=== PATIENT | female | born 1980 | race Caucasian/White ===

== ENCOUNTER → 2019-03-26 16:40 | Outpatient (CLI) | payer OTHER, SELFPAY ==
--- NOTE | ~2019-03-26 | XR_ITS ---
EXAMINATION: XR sinus min 3V DATE: 03/26/2019 17:09 INDICATION: Chronic sinusitis TECHNIQUE: AP, Sanabria and lateral views of the paranasal sinuses were obtained. COMPARISON: None. FINDINGS: No fractures identified. Specifically the visualized shannon of the orbits and paranasal sinuses appea r intact. Nasal septum is midline. The paranasal sinuses and mastoid air cells appear well-aerated wi th no evident air-fluid levels.. IMPRESSION: 1. Unremarkable radiographs of the paranasal sinuses. Reviewed, dictated and finalized at location A. PULLER
== END ==
PROVIDERS: PCP Family Medicine; Visit Provider Family Medicine
DX: J32.9 Chronic sinusitis, unspecified (principal)
CPT/HCPCS: 70220

== ENCOUNTER 2019-10-19 14:58 | Outpatient (CLI) | payer OTHER, SELFPAY ==
--- NOTE | ~2019-10-19 | MR_ITS ---
EXAMINATION: MR cervical spine wo con DATE: 10/19/2019 15:57 INDICATION: Neck pain and numbness. TECHNIQUE: Magnetic resonance imaging (MRI) of the cervical spine was performed without intravenous c ontrast. Sequences included sagittal T2-weighted FSE, sagittal STIR FSE, sagittal T1-weighted FSE, ax ial MERGE, and axial T2-weighted FSE. COMPARISON: None FINDINGS: There is kyphosis of cervical spine. Vertebral body heights are normal. There is mildly dec reased disc height at C4-C5 and moderately decreased disc height at C5-C6. The spinal cord signal int ensity is normal. There are nodules in the thyroid measuring up to 4 mm, likely not clinically signif icant. The following disc levels are specifically discussed: C2-C3: The disc does not extend beyond the endplate margin. There is no uncovertebral joint osteoarth ritis. There is no facet joint osteoarthritis. There is no neural foraminal stenosis. There is no violetta tral canal stenosis. C3-C4: There is a central extrusion. There is no uncovertebral joint osteoarthritis. There is no face t joint osteoarthritis. There is no neural foraminal stenosis. There is mild central canal stenosis w ith ventral indentation of the spinal cord. C4-C5: The disc is bulging. There is mild left uncovertebral joint osteoarthritis. There is mild left facet joint osteoarthritis. There is no neural foraminal stenosis. There is mild central canal steno sis with ventral indentation of the spinal cord. C5-C6: The disc is bulging. There is severe bilateral uncovertebral joint osteoarthritis. There is mi ld right facet joint osteoarthritis. There is moderate bilateral neural foraminal stenosis. There is mild central canal stenosis with ventral indentation of the spinal cord. C6-C7: There is a central protrusion. There is mild left uncovertebral joint osteoarthritis. There is mild left facet joint osteoarthritis. There is no neural foraminal stenosis. There is mild central c anal stenosis. C7-T1: The disc does not extend beyond the endplate margin. There is no uncovertebral joint osteoarth ritis. There is mild right and moderate left facet joint osteoarthritis. There is mild left neural fo raminal stenosis. There is no central canal stenosis. IMPRESSION: 1. Moderate cervical spondylosis. Reviewed, dictated and finalized at location B.
--- NOTE | ~2019-10-19 | MR_ITS ---
EXAMINATION: MR brain/brain stem wo/w con DATE: 10/19/2019 16:00 INDICATION: Headache. TECHNIQUE: Magnetic resonance imaging (MRI) of the brain and brainstem was performed without and with 12 mL MultiHance intravenous contrast. Sequences included sagittal and axial T1-weighted FSE, axial diffusion-weighted FS EPI, axial T2*-weighted GRE, axial T2-weighted FLAIR Propeller, and axial T2-we ighted Propeller. Postcontrast sequences included axial and coronal T1-weighted FSE. Apparent diffusi on coefficient (ADC) maps were created. COMPARISON: None. FINDINGS: There is no intracranial hemorrhage, acute infarction, or abnormal intracranial mass lesion . The ventricles are normal in size. The orbits are normal. The paranasal sinuses are clear. The mast oid air cells are normal. IMPRESSION: 1. Normal brain. Reviewed, dictated and finalized at location B. IMPRESSION: 1. Normal brain.
[2019-10-19 15:23] LABS: Estimated Glomerular Filt Rate > 60
== END 2019-10-19 14:59 ==
PROVIDERS: Visit Provider Family Medicine
DX: R51 Headache (principal); R20.2 Paresthesia of skin; M47.892 Other spondylosis, cervical region
CPT/HCPCS: 36415; 70553; 72141; A9577

== ENCOUNTER → 2019-12-11 14:15 | Outpatient (CLI) | payer OTHER, SELFPAY ==
--- NOTE | ~2019-12-11 | XR_ITS ---
XR pelvis 1-2V DATE: 12/11/2019 14:51 INDICATION: Take radiograph with patient standing and shoes off TECHNIQUE: Standing AP view COMPARISON: None FINDINGS: There is pelvic tilt, the left femoral head is approximately 8.5 mm higher than the right f emoral head. No pelvic fracture or bone destruction. The pubic symphysis and sacral iliac joints are intact. Hip j oint spaces are symmetric and preserved. IMPRESSION: Pelvic tilt Reviewed, dictated and finalized at location B. IMPRESSION: Pelvic tilt
--- NOTE | ~2019-12-11 | XR_ITS ---
EXAMINATION: XR lumbar spine 6V w bending DATE: 12/11/2019 14:53 INDICATION: Low back pain. TECHNIQUE: 8 views of lumbar spine including flexion and extension views were obtained. COMPARISON: None. FINDINGS: Bone alignment is normal. There is no abnormal motion with flexion or extension. Vertebral body heights and intervertebral disc heights are normal. There are endplate osteophytes at L1-L2 and L4-L5. The facet joints are unremarkable. IMPRESSION: 1. Mild lumbar spondylosis. Reviewed, dictated and finalized at location A. IMPRESSION: 1. Mild lumbar spondylosis.
== END ==
PROVIDERS: PCP Family Medicine; Visit Provider Family Medicine
DX: M47.896 Other spondylosis, lumbar region (principal)
CPT/HCPCS: 72114; 72170

== ENCOUNTER 2020-01-26 17:00 | Outpatient (RCR) | payer OTHER, SELFPAY ==
--- NOTE | 2019-11-09 15:56 | PTOPEVAL ---
Thank you for referring Wanda Aldrich to [facility].? The patient is scheduled to be seen for therapy? 2 x/week for 8 weeks. Please review, sign, date and return this plan of care RHODA. I agree with and certify that the following plan of care is medically necessary. Referring Physician Date Admitting Provider: Attending Provider: Yamil Mercado DO Referring Provider: ROLDAN Outpatient Evaluation Start: 11/09/19 14:40 Freq: Status: Active Protocol: Document 11/09/19 14:42 TLM (Rec: 11/09/19 15:[address] [facility] [id number]) Therapy Assessment Status Assessment Status Assessment Status Evaluation Outpatient Past Medical History Past Medical History Source of Past Medical History Recalled from Previous Visit, Unable to Confirm with Patient /Family Evaluation Information Problem Diagnosis neck pain and numbness Additional Evaluation Detail Cervical pain is described as sore and achy in nature. She's had the pain off and on for years. Reports getting a cervical pillow 2 weeks ago that she believes has helped with her pain management. 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 Right hand dominant. Had onset of L scapular numbness (about a baseball sized area) at the end of September 2019. About a week later it started referring to the R side to medial scapular border. Would subside after a few hours on the right side but consistent at the L side. MRI on 10/19/19 revealed moderate cervical spondylosis. Got a shot in the L shoulder musculature on 10/23/19 that she believes started to relieve some pain starting last week 11/02/19. No longer has R numbness referal and only intermittent L shoulder numbness that comes and goes throughout the day. Occasional shooting pain down
--- NOTE | 2019-12-29 18:11 | PTOPEVAL ---
PHYSICAL THERAPY PLAN OF CARE UPDATE AND PROGRESS REPORT Thank you for referring Wanda Aldrich to [facility].? The patient is scheduled to be seen for therapy?1x/week for 4 weeks. Please review, sign, date and return this plan of care RHODA. I agree with and certify that the following plan of care is medically necessary. Referring Physician Date Attending Provider: Yamil Mercado, DO Discharge Diagnosis neck pain and numbness Subjective Information Wanda has been participating Query Text:As Reported By Patient/ in physical therapy for neck Family pain for 6 weeks. Overall she is feeling much improved. it' s still there but I don't feel so much nagging [in the back of the neck]. She states she still feels tension in her shoulders, but the pain is not in the back of her head. Self Report Pain Assessment Neck Reported Pain Level 1 Pain Description Pressure,Tightness Pain Frequency Continuous Pain Score Pain Score 1: Self Report Additional Pain Score Comments reports feeling really very good. Interventions Used Interventions Used By Clinicians Dry Needling,Exercise,Joint Mobilization,Manual Therapy Techniques Cervical and Lumbar ROM Cervical ROM Cervical Flexion (0-60) 60 Query Text:Active in Degrees Cervical Extension (0-70) 58 Query Text:Active in Degrees Cervical Lateral Flexion Right (0-50) 40 Query Text:Active in Degrees Cervical Lateral Flexion Left (0-50) 40 Query Text:Active in Degrees Cervical Rotation Right (0-90) 69 Query Text:Active in Degrees Cervical Rotation Left (0-90) 72 Query Text:Active in Degrees Cervical ROM Comments Pain with extension and B lateral flexion Upper Extremity Muscle Strength Testing Scapular/Shoulder Left Scapular Retraction - Middle Trapezius 3 Fair Scapular Retraction - Lower Trapezius 3 Fair Shoulder Flexion Strength 5 Normal Shoulder Abduction Strength 5 Normal Shoulder Medial Rotation Strength 5 Normal Shoulder Lateral Rotation Strength 5 Normal Right Scapular Retraction - Middle Trapezius 3+ Fair + Scapular Retraction - Lower Trapezius 3+ Fair + Shoulder Flexion Strength 5 Normal Shoulder Abduction Strength 5 Normal Shoulder Medial Rotation Strength 5 Normal Shoulder Lateral Rotation Strength 5 Normal Posture Posture Sitting Position Posture Evaluation View Anterior Head/C-Spine Posture Neutral Position Thoracic Spine Posture Incre
--- NOTE | 2020-01-26 17:43 | PTOPEVAL ---
PHYSICAL THERAPY PLAN OF CARE UPDATE Thank you for referring Wanda Aldrich to [facility].? We will hold chart for 30 days while patient continues HEP and she will call if she has any questions or concerns. Please review, sign, date and return this plan of care RHODA. I agree with and certify that the following plan of care is medically necessary. Referring Physician Date Attending Provider: Yamil Mercado, DO [facility] Past Medical History Past Medical History Source of Past Medical History Recalled from Previous Visit, Unable to Confirm with Patient /Family Diagnosis neck pain and numbness Additional Evaluation Detail . Subjective Information Wanda has been participating Query Text:As Reported By Patient/ in physical therapy for neck Family pain for 10 weeks. Reports that her tension headaches have not returned in several weeks. She continues to have sinus headaches and is sensitive to certain smells ( bonfire smoke), but no tension headaches. Wanda also reports feeling confident in her HEP, just nervous about the tension returning to the back of her head. Also reports the neck really gets tired mostly and she can rest and it will feel better. Pain Assessment Timing of Pain Assessment Timing of Pain Assessment Pre-Treatment Self Report Self Report Pain Level 0 Interventions Used Interventions Used By Clinicians Exercise,Joint Mobilization, Manual Therapy Techniques Cervical and Lumbar ROM Cervical ROM Cervical Flexion (0-60) 60 Query Text:Active in Degrees Cervical Extension (0-70) 58 Query Text:Active in Degrees Cervical Lateral Flexion Right (0-50) 45 Query Text:Active in Degrees Cervical Lateral Flexion Left (0-50) 45 Query Text:Active in Degrees Cervical Rotation Right (0-90) 75 Query Text:Active in Degrees Cervical Rotation Left (0-90) 75 Query Text:Active in Degrees Cervical ROM Comments no pain Upper Extremity Range of Motion General Upper Extremity Range of Motion Reason Not Measured WNL/Left,WNL/Right Upper Extremity Muscle Strength Testing Scapular/Shoulder Left Scapular Retraction - Middle Trapezius 3+ Fair + Scapular Retraction - Lower Trapezius 3+ Fair + Shoulder Flexion Strength 5 Normal Shoulder Abduction Strength 5 Normal Shoulder Medial Rotation Strength 5 Normal Shoulder Lateral Rotat
== END 2020-02-07 23:59 | disposition home or self-care (01) ==
LOC: ANHPT 17:00
PROVIDERS: Visit Provider Family Medicine
DX: M47.812 Spondylosis without myelopathy or radiculopathy, cervical region (principal); M54.2 Cervicalgia; G43.909 Migraine, unspecified, not intractable, without status migrainosus; G89.29 Other chronic pain
CPT/HCPCS: 97012; 97014; 97110; 97140; 97161; G0283

== ENCOUNTER 2020-01-26 17:39 | Outpatient (CLI) | payer OTHER, SELFPAY ==
[2020-01-26 18:06] LABS: Basophils Absolute Auto 0.1 K/mm3 (0.0-0.1); Basophils Percent Auto 0.6 % (0.2-1.2); Eosinophils Percent Auto 0.5 % (0-4.4); Hematocrit 42.4 % (37.0-47.0); Hemoglobin 13.8 g/dL (12.0-15.0); Immature Granulocyte Absolute 0.03 K/mm3 (0.00-0.031); Immature Granulocyte Percent A 0.3 % (0-0.5); Lymphocytes Absolute Auto 2.25 K/mm3 (0.9-3.2); Mean Corpuscular HGB Conc 32.5 g/dl (32-36); Mean Corpuscular Volume 89.1 fl (80-100); Mean Platelet Volume 9.5 fl (7.4-10.4); Monocytes Absolute Auto 0.7 K/mm3 (0.1-0.6); Monocytes Percent Auto 7.6 % (2.6-8.5); Neutrophils Absolute Auto 5.6 K/mm3 (1.3-6.7); Platelet Count Result 250 k/mm3 (150-375); Red Blood Count 4.76 M/mm3 (4.2-5.4); Red Cell Distribution Width 13.5 % (11.5-14.5); White Blood Count 8.7 K/mm3 (4.5-10.0)
[2020-01-26 18:12] LABS: Add Urine Microscopic? YES; Appearance Urine Clear (Clear); Bilirubin Urine Negative (Negative); Blood Urine Negative (Negative); Color Urine Yellow (Yellow); Glucose Urine UA Negative (Negative); Ketones Urine 1+ mg/dL (Negative); Leukocyte Esterase Ur Negative LEU/UL (Negative); Mucus Urine Rare /lpf; Nitrate Urine Negative (Negative); Protein Urine 1+ mg/dL (Negative); RBC Urine 0-2 /hpf (0-2); Specific Grav Ur 1.023 (1.001-1.035); Squamous Epithelial Cell Urine Occasional /hpf (Few); Urobilinogen Urine Negative mg/dL (<2.0); WBC Urine 0-3 /hpf
[2020-01-26 18:21] LABS: CRP < 0.5 mg/dL (<1.0); Cholesterol 210 mg/dL (0-200); HDL Direct 83 mg/dL; Triglycerides 49 mg/dL (<150)
[2020-01-26 18:29] LABS: LDL Cholesterol Direct 108 mg/dL
[2020-01-26 19:08] LABS: Free T4 Free Thyroxine 1.15 ng/mL (0.78-2.19); Vitamin D 25 Hydroxy 37.5 ng/mL
[2020-01-30 10:38] LABS: T3 Reverse 22 ng/dL (8-25)
[2020-01-31 16:13] LABS: Sex Hormone Binding Globulin 65 nmol/L (17-124)
[2020-01-31 16:17] LABS: Testosterone Free 2.7 pg/mL (0.1-6.4); Testosterone Total 33 ng/dL (2-45)
[2020-02-03 07:07] LABS: FSH 8.9 mIU/mL (***); LH 6.7 mIU/mL (***); Progesterone 0.4 ng/mL (***); Triiodothyronine T3 Free 2.8 pg/mL (2.3-4.2)
== END 2020-01-26 17:40 | disposition home or self-care (01) ==
LOC: ANHLAB 17:40
PROVIDERS: PCP Family Medicine; Visit Provider Family Medicine
DX: R53.83 Other fatigue (principal); Z79.899 Other long term (current) drug therapy; G43.909 Migraine, unspecified, not intractable, without status migrainosus; G47.19 Other hypersomnia; N93.8 Other specified abnormal uterine and vaginal bleeding; Z82.62 Family history of osteoporosis
CPT/HCPCS: 36415; 80061; 81001; 81240; 81241; 82306; 82607; 82746; 83001; 83002; 84144; 84270; 84402; 84403; 84439; 84443; 84481; 84482; 85025; 85301; 85303; 85306; 86140

== ENCOUNTER 2020-02-20 08:38 | Outpatient (CLI) | payer OTHER, SELFPAY ==
--- NOTE | ~2020-02-20 | US_ITS ---
EXAMINATION: US thyroid DATE: 02/20/2020 16:55 INDICATION: Dysphonia. Abnormal thyroid levels. Goiter. TECHNIQUE: Multiple ultrasound images of the thyroid were obtained. COMPARISON: None. FINDINGS: The right thyroid lobe measures 5.5 x 1.8 x 2.0 cm. The left thyroid lobe measures 5.9 x 1.9 x 1.7 c m. Wider than tall solid hypoechoic nodules with ill-defined margins at (TI-RADS 4, moderately suspi cious , FNA if >=1.5 cm, annual followup is >1 cm) measuring 5 mm at the left thyroid and 6 mm the ri ght thyroid. Wider than tall mixed solid and cystic hypoechoic nodules without echogenic (TI-RADS 3, mildly suspicious , FNA if >=2.5 cm, annual followup is >1.5 cm) measuring 8 mm in the right thyroid lobe and 9 mm in the left thyroid. There is normal echotexture, echogenicity and vascular flow throug hout the surrounding thyroid gland. IMPRESSION: 1. Multinodular goiter with no nodules meeting criteria for biopsy or follow-up. Reviewed, dictated and finalized at location B. INSPECTION ENGINEER IMPRESSION: 1. Multinodular goiter with no nodules meeting criteria for biopsy or follow-up .
== END 2020-02-20 08:39 | disposition home or self-care (01) ==
PROVIDERS: PCP Family Medicine; Visit Provider Family Medicine
DX: R49.0 Dysphonia (principal); E04.2 Nontoxic multinodular goiter; R79.89 Other specified abnormal findings of blood chemistry
CPT/HCPCS: 76536

== ENCOUNTER 2020-03-12 01:52 | Outpatient (CLI) | payer OTHER, SELFPAY ==
[2020-03-12 20:08] LABS: SARS-CoV-2 RNA PCR Negative
== END 2020-03-12 01:53 | disposition home or self-care (01) ==
LOC: ANHCOVIDDT 01:56
PROVIDERS: PCP Family Medicine; Visit Provider Obstetrics & Gynecology
DX: Z01.818 Encounter for other preprocedural examination (principal); Z20.828 Contact with and (suspected) exposure to other viral communicable diseases
CPT/HCPCS: C9803; U0003

== ENCOUNTER 2020-03-16 00:29 | Day surgery (SDC) | payer OTHER, SELFPAY ==
[2020-03-07 15:33] VITALS: BMI 24.5
--- NOTE | 2020-03-15 10:21 | WPDANESEPPF ---
Anes - Initial Pre Proc Eval Procedure: Operation Date: 03/16/20 09:00 Proposed Procedures p Hysteroscopy Dilation and Curettage, Possible Myosure, Gracie Ablation - Leonard Steele MD Date/Time: 03/15/20 10:21 Surgeon: Leonard Steele MD Pre Op Diagnosis: Menorrhagia Patient Data Age: 39 Gender: F Height: 1.55 m Weight: 58.9 kg Allergies Allergy/AdvReac Type Severity Reaction Status Date / Time No Known Allergies Allergy Verified 03/16/20 07:43 Home Medications Medication Instructions Recorded Confirmed Type fluconazole 150 mg tablet 150 mg PO WEEKLY #24 tablet 09/04/19 03/16/20 Rx topiramate 50 mg tablet 50 mg PO BID #180 tablet 12/01/19 03/16/20 Rx bupropion HCl 300 mg 24 hr tablet, 300 mg PO QAM #30 tablet 02/29/20 03/16/20 Rx extended release ergocalciferol (vitamin D2) 50,000 unit PO MONTHLY 03/07/20 03/16/20 History omeprazole 20 mg PO PRN PRN 03/07/20 03/16/20 History sumatriptan succinate [Imitrex] 100 mg PO PRN PRN 03/07/20 03/16/20 History tranexamic acid [Lysteda] 1,300 mg PO PRN PRN 03/07/20 03/16/20 History Patient hx anesthesia problems: none Family hx anesthesia problems: none PMFSH Past Medical History Medical History Acid reflux Anxiety DDD (degenerative disc disease) Depression Headache, migraine Normal vaginal delivery Surgical History Surgical History History of tubal ligation Family History Family History Grandparent Blood clot in vein Diabetes mellitus Cerebrovascular accident Father Hypertension Acute myocardial infarction Other Breast cancer Social History Social History Smoking packs per day: 0.5 Smoking cigarettes per day: 10.0 Years smoked: 15 Smoking pack-years: 7.50 Smoking status: Former smoker Tobacco type: e-cigarettes/vaping Smoking end date: 03/11/12 Additional smoking assessment comments: 2014 Alcohol intake: current Substance use: never Substance use type: does not use Spiritual care concerns: No Anes - Eval Final PreProcedure Day of Procedure 03/15/20 10:21 Patient weight: normal Heart: regular rate and rhythm Lungs: clear to auscultation and normal air movement Airway: Mallampati scale class II Neurological: alert and oriented Last oral intake: >/= 8 hours ASA classification: II Emergent: no Anesthetic plan: proceed Anesthesia type and monitoring: general GIVS and standard monitoring Informed Consent: The patient's anesthetic plan and its attendant risks and benefits were discussed with the patient/family/POA. Questions were solicited and answers provided to the satisfaction of the patient/family/POA.
[2020-03-16 07:30] VITALS: BP 118/66; PULSE 92; RESP 16; TEMP 37.1; O2SAT 100
--- NOTE | 2020-03-16 07:52 | PM.IMHP ---
H&P: HPI History of Present Illness Date/Time: 03/16/20 07:52 Chief Complaint: Menorrhagia Narrative: Wanda Aldrich is a 39 year old female with a history of menorrhagia for years. She desires endometrial ablation. She declines hormonal options or IUD. She had a recent endometrial biopsy which did not show hyperplasia or malignant cells. She has had a prior tubal ligation. Discussed risk benefits of endometrial ablation. Her questions were answered and she desires the endometrial ablation. Review of Systems Review of Systems: All systems reviewed & are unremarkable except as noted in HPI and below Cardiovascular: Cardiovascular: Reports no additional cardiovascular complaints, Denies chest pain and Denies dyspnea Respiratory: Respiratory: Reports no additional respiratory complaints and Denies dyspnea Gastrointestinal: Gastrointestinal: Reports abdominal pain, Denies change in bowel habits, Denies diarrhea, Denies nausea and Denies vomiting Genitourinary: Genitourinary: Reports pelvic pain Musculoskeletal: Musculoskeletal: Reports back pain Integumentary/Breasts: Skin/Breast: Reports system reviewed and no additional complaints, except as docu Neurologic: Reports system reviewed and no additional complaints, except as documented PMFSH Past Medical History Medical History Acid reflux Anxiety DDD (degenerative disc disease) Depression Headache, migraine Normal vaginal delivery Surgical History Surgical History History of tubal ligation Family History Family History Grandparent Blood clot in vein Diabetes mellitus Cerebrovascular accident Father Hypertension Acute myocardial infarction Other Breast cancer Social History Social History Smoking packs per day: 0.5 Smoking cigarettes per day: 10.0 Years smoked: 15 Smoking pack-years: 7.50 Smoking status: Former smoker Tobacco type: e-cigarettes/vaping Smoking end date: 03/11/12 Additional smoking assessment comments: 2015 Alcohol intake: current Substance use: never Substance use type: does not use Spiritual care concerns: No Meds Home Medications and Allergies Home Medications Medication Instructions Recorded Confirmed Type fluconazole 150 mg tablet 150 mg PO WEEKLY #24 tablet 09/04/19 03/16/20 Rx topiramate 50 mg tablet 50 mg PO BID #180 tablet 12/01/19 03/16/20 Rx bupropion HCl 300 mg 24 hr tablet, 300 mg PO QAM #30 tablet 02/29/20 03/16/20 Rx extended release ergocalciferol (vitamin D2) 50,000 unit PO MONTHLY 03/07/20 03/16/20 History omeprazole 20 mg PO PRN PRN 03/07/20 03/16/20 History sumatriptan succinate [Imitrex] 100 mg PO PRN PRN 03/07/20 03/16/20 History tranexamic acid [Lysteda] 1,300 mg PO PRN PRN 03/07/20 03/16/20 History Allergies Allergy/AdvReac Type Severity Reaction Status Date / Time No Known Allergies Allergy Verified 03/16/20 07:43 Vital Signs Vital Signs - 24 hr 03/16/20 07:30 Temperature 98.8 F Pulse Rate 92 Respiratory Rate 16 Blood Pressure 118/66 Pulse Oximetry 100 Exam Const: Orientation/consciousness: oriented to person and oriented to place HENMT: Head: normal to inspection Eyes: General: appearance normal, both eyes and all related structures Resp: Effort & Inspection: normal respiratory effort Auscultation: clear to auscultation bilaterally Cardio: Rate: regular rate Rhythm: regular rhythm GI: Inspection: normal to inspection GI Palp: Yes Other GI palpation findings present (non tender) : External Female Exam: normal external appearance Speculum Exam - Vagina: normal appearance of the vagina Speculum Exam - Cervix: normal appearance of the cervix Bimanual exam- vagina & uterus: normal bimanual exam Bimanual Exam- Adnexa,
[2020-03-16] MEDS: ACETAMINOPHEN 500 MG TABLET 1000 MG PO (07:56)
--- NOTE | 2020-03-16 07:57 | WPDHPUPDATE1 ---
History and Physical Update Update Date/Time: 03/16/20 07:57 History and Physical has been reviewed, including an updated exam of the patient. There are NO changes in the patient's condition. Risks, benefits, and alternatives have been discussed and questions answered. Patient agrees to proceed with procedure.
[2020-03-16] MEDS: LACTATED RINGERS 1,000 ML 30 ML IV CONT (08:06)
[2020-03-16] MEDS: ceFAZolin 2 GM/D5W 50 ML 2 GM/50 ML BAG IVPB (09:57)
[2020-03-16] MEDS: LIDOCAINE HCL 1% LOCAL INJ 10 ML VIAL INFILTRATE (10:13)
[2020-03-16 10:34] VITALS: BP 104/66; PULSE 83; RESP 20; O2SAT 100
[2020-03-16] MEDS: oxyCODONE HCL (*CRX) 5 MG TAB IR PO (10:50)
[2020-03-16 11:00] VITALS: BP 116/63; PULSE 60; RESP 20
--- NOTE | 2020-03-16 11:19 | P.OP_ITS ---
Procedure Note - Detailed Date of procedure: 03/17/20 Pre-op diagnosis: Menorrhagia Abnormal uterine bleeding with menorrhagia Post-op diagnosis: same Procedure performed: Hysteroscopic endometrial ablation with Gracie Description of procedure: After informed consent was obtained patient was taken to the operating room and adequate IV sedation was administered. Attention was turned to the vagina. Speculum was inserted. Single-tooth tenaculum placed on the anterior lip of the cervix. The uterus was sounded to 7.5 cm. The cervical length was 2.0 cm. The cervix was dilated to an 8 Odom dilator. The hysteroscope was inserted into the cavity. The findings were a normal uterine cavity. The hysteroscope was removed. The Gracie ablation instrument was inserted into the cavity. Cavity assessment was performed and noted to be intact. The ablation was enabled. After 35 seconds the Gracie stopped with an error code. The device was removed. The hysteroscope was inserted and cavity normal. A new device was inserted. The device was enabled. After 120 seconds it stopped. The ablation instrument was removed. The hysteroscope was inserted and there was noted to be good eschar with the cavity. The hysteroscope was removed the single-tooth tenaculum was removed hemostasis was noted at the tenaculum site. Sponge count correct. The patient tolerated procedure well and was taken to recovery in stable cond ition. Surgeon: Leonard Steele MD Estimated blood loss (mL): 5 Drains: No Packing: No Pathology: none sent Complications: No immediate complications Condition: stable Disposition: PACU Findings: Uterus sound to 7.5cm, cervical length 2.0 cm, uterine length 5.5cm, uterine cavity normal, no lesions.
[2020-03-16] MEDS: fentaNYL CITRATE INJ (*CRX) 100 MCG/2 ML VIAL 25 MCG IV PUSH (11:20)
[2020-03-16 11:30] VITALS: BP 109/72; PULSE 74; RESP 20
== END 2020-03-16 11:40 | disposition home or self-care (01) ==
PROVIDERS: PCP Family Medicine; Visit Provider Obstetrics & Gynecology
PROC: 0U5B8ZZ Destruction of Endometrium, Via Natural or Artificial Opening Endoscopic (ICD-10-PCS; CPT 58563; principal; 2020-03-16 09:00)
DX: N92.0 Excessive and frequent menstruation with regular cycle (principal); K21.9 Gastro-esophageal reflux disease without esophagitis; F41.8 Other specified anxiety disorders; Z87.891 Personal history of nicotine dependence
CPT/HCPCS: 58563; A9270; J0690; J1885; J2250; J2704; J3010; J7030; J7120

== ENCOUNTER 2021-02-14 08:18 | Outpatient (CLI) | payer OTHER, SELFPAY ==
[2021-02-14 20:11] LABS: Basophils Percent Auto 0.7 % (0.2-1.2); Eosinophils Absolute Auto 0.1 K/mm3 (0-0.3); Eosinophils Percent Auto 0.9 % (0-4.4); Hematocrit 44.7 % (37.0-47.0); Hemoglobin 14.4 g/dL (12.0-15.0); Immature Granulocyte Absolute 0.02 K/mm3 (0.00-0.031); Immature Granulocyte Percent A 0.4 % (0-0.5); Lymphocytes Absolute Auto 1.55 K/mm3 (0.9-3.2); Lymphocytes Percent Auto 27.9 % (18.3-44.2); Mean Corpuscular HGB Conc 32.2 g/dl (32-36); Mean Corpuscular Hemoglobin 30.6 pg (26-34); Mean Corpuscular Volume 95.1 fl (80-100); Monocytes Absolute Auto 0.6 K/mm3 (0.1-0.6); Monocytes Percent Auto 10.8 % (2.6-8.5); Neutrophils Absolute Auto 3.3 K/mm3 (1.3-6.7); Neutrophils Percent Auto 59.3 % (45.5-73.1); Platelet Count Result 237 k/mm3 (150-375); Red Cell Distribution Width 12.4 % (11.5-14.5); White Blood Count 5.6 K/mm3 (4.5-10.0)
[2021-02-14 20:22] LABS: Alanine Aminotransferase 15 U/L (4-35); Albumin Level 4.8 g/dL (3.5-5.1); Alkaline Phosphatase 55 U/L (38-126); Anion Gap 11 mmol/L (8-16); Aspartate Amino Transferase 19 U/L (14-36); Bilirubin,Total 0.6 mg/dL (0.2-1.3); Blood Urea Nitrogen 11 mg/dL (7-17); Calcium 9.7 mg/dL (8.4-10.2); Carbon Dioxide 23 mmol/L (22-30); Chloride 106 mmol/L (98-107); Cholesterol 198 mg/dL (0-200); Estimated Glomerular Filt Rate > 60; Glucose 101 mg/dL (65-110); HDL Direct 89 mg/dL; Potassium 3.7 mmol/L (3.4-5.0); Sodium 140 mmol/L (137-145); Triglycerides 60 mg/dL (<150)
[2021-02-14 20:33] LABS: LDL Cholesterol Direct 93 mg/dL
[2021-02-14 20:33] LABS: Vitamin D 25 Hydroxy 51.4 ng/mL
[2021-02-14 20:38] LABS: Free T4 Free Thyroxine 1.17 ng/mL (0.78-2.19)
[2021-02-14 20:47] LABS: Thyroid Stimulating Hormone Reflex 0.331 uIU/mL (0.465-4.68)
[2021-02-15 12:21] LABS: Free T4 Free Thyroxine Reflex 1.37 ng/dL (0.78-2.19)
[2021-02-15 14:04] LABS: Total Triiodothyronine (T3) 1.38 NG/ML (0.97-1.69)
[2021-02-17 05:53] LABS: Progesterone 20.2 ng/mL (***)
[2021-02-17 05:55] LABS: FSH 19.9 mIU/mL (***); Triiodothyronine T3 Free 2.9 pg/mL (2.3-4.2)
[2021-02-17 06:29] LABS: Thyroid Peroxidase Antibodies <1 IU/mL (<9)
[2021-02-17 14:36] LABS: Thyroid Stimulating Immunoglob <89 % baseline (<140)
[2021-02-18 18:33] LABS: Sex Hormone Binding Globulin 71 nmol/L (17-124)
[2021-02-19 11:52] LABS: T3 Reverse 16 ng/dL (8-25)
[2021-02-20 14:24] LABS: Testosterone Free 1.4 pg/mL (0.1-6.4); Testosterone Total 15 ng/dL (2-45)
[2021-02-21 17:08] LABS: Estrogen 127.2 pg/mL
[2021-02-23 22:54] LABS: Antithrombin III Activity 109 % normal (80-135); Factor V Leiden Mutation NEGATIVE; Protein S Antigen, Free 90 % normal (50-147)
[2021-02-28 21:15] LABS: Estradiol, Ultrasensitive 16 pg/mL
== END 2021-02-14 08:19 | disposition home or self-care (01) ==
PROVIDERS: Family Medicine; PCP Family Medicine; Visit Provider Family Medicine
DX: G47.19 Other hypersomnia (principal); R53.83 Other fatigue; Z82.62 Family history of osteoporosis; Z79.899 Other long term (current) drug therapy; N93.8 Other specified abnormal uterine and vaginal bleeding; G43.909 Migraine, unspecified, not intractable, without status migrainosus; R79.89 Other specified abnormal findings of blood chemistry; E04.2 Nontoxic multinodular goiter; N92.0 Excessive and frequent menstruation with regular cycle; N99.89 Other postprocedural complications and disorders of genitourinary system; Z98.51 Tubal ligation status; G25.81 Restless legs syndrome; F41.9 Anxiety disorder, unspecified; Z83.2 Family history of diseases of the blood and blood-forming organs and certain disorders involving the immune mechanism
CPT/HCPCS: 36415; 80053; 80061; 81240; 81241; 82306; 82670; 82672; 82785; 83001; 84144; 84270; 84402; 84403; 84439; 84443; 84445; 84480; 84481; 84482; 85025; 85301; 85303; 85306; 86003; 86376